=== PATIENT | female | born 1950 | race Caucasian/White ===

== ENCOUNTER 2024-01-08 06:15 | Inpatient (IN) | payer OTHER ==
[2024-01-08] VITALS (15 sets, daily range): BP systolic 94–125; BP diastolic 39–73; PULSE 71–90; RESP 16–18; TEMP 97.2–98.2; O2SAT 91–99
[~2024-01-08] VITALS: Ht 160 cm; Wt 95.7 kg
[~2024-01-08 06:15] MED LIST: FOLI-119 PO; HYDR-4491 OR; LOSA-535 PO; METH2.5T PO; TRIA37.586 PO
[2024-01-08] MEDS: ROCURONIUM 10MG/ML 10ML VIAL IV ONE (06:25)
[2024-01-08] MEDS: SUCCINYLCHOLINE CHLORIDE 20 MG/ML 10ML VIAL IV ONE (06:25)
[2024-01-08] MEDS: TETRACAINE 1% INJ 2 ML VIAL IJ ONE (06:25)
[2024-01-08] MEDS ORDERED: fentaNYL CITRATE 100 MCG/2 ML VL ONE (06:30)
[2024-01-08] MEDS ORDERED: MIDAZOLAM HCL 2MG/2ML 2ml VIAL (1mg/ml) ONE ×2 (06:30→07:35)
[2024-01-08] MEDS ORDERED: MORPHINE SULF PF 5 MG/10 ML VIAL ONE (06:30)
[2024-01-08] MEDS ORDERED: DexAMETHasone SOD PHOS 10MG/1ML VIAL INJ ONE (06:31)
[2024-01-08] MEDS ORDERED: SODIUM CHLORIDE LOCK 10 ML ONE (06:31)
[2024-01-08] MEDS ORDERED: PROPOFOL 10 MG/ML 20 ML IV ONE (06:31)
[2024-01-08] MEDS ORDERED: ONDANSETRON HCL 4 MG/2 ML VIAL ONE (06:31)
[2024-01-08] MEDS ORDERED: LIDOCAINE 1% INJ PF 5ML AMP ONE (06:31)
[2024-01-08] MEDS: TRANEXAMIC ACID 20 ML ONE (07:05)
[2024-01-08] MEDS: ACETAMINOPHEN IV 100 ML IV ONE (07:13)
[2024-01-08] MEDS: oxyCODONE ER 20 MG TAB PO ONE (07:13)
[2024-01-08] MEDS: GABAPENTIN 400 MG CAP ONE (07:13)
[2024-01-08] MEDS: ceFAZolin 2 GM/D5W100ml 100 ML IV ONE (07:15)
[2024-01-08] MEDS: CEFEPIME 1GM/ 50ML 50 ML IV ONE (07:23)
[2024-01-08] MEDS: VANCOMYCIN HCL 1000 MG VL ONE (08:03)
[2024-01-08] MEDS: EPINEPHrine HCL 1 MG/1 ML AMP ONE (08:03)
[2024-01-08] MEDS: ROPIVACAINE 0.5% (5MG/ML) 20ML AMPULE IJ ONE (08:03)
[2024-01-08] MEDS ORDERED: fentaNYL CITRATE 100 MCG/2 ML VL IV PRN (08:45)
[2024-01-08] MEDS: METOCLOPRAMIDE HCL 5MG/ml INJ 2ml VIAL IV ONE (08:45)
[2024-01-08] MEDS ORDERED: NALOXONE HCL 0.4 MG/ML VIAL IV PRN (08:45)
[2024-01-08] MEDS ORDERED: diphenhdrAMINE HCL 50 MG/1 ML VL IV PRN (08:45)
[2024-01-08] MEDS: KETOROLAC TROMETH 30 MG/ML 1ML VIAL IV ONE (08:45)
[2024-01-08] MEDS ORDERED: MORPHINE SULFATE INJ 2 MG/ml SYRG IV PRN (08:45)
[2024-01-08] MEDS ORDERED: HYDROmorphone HCL 2 MG/ML VL/or syr IV PRN ×2 (08:45)
--- NOTE | 2024-01-08 09:56 | DVHOP2 ---
Operative Report - 2 Report Details Date: 01/08/24 Preop Diagnosis: Left knee degenerative arthritis Postop Diagnosis: Same Surgeon: Bee Roy MD Regional Sales Consultant: Acosta LÓPEZ Anesthesiologist: Romel Anesthesia: Local, Regional Drains: Humaira closed wound suction Implant: DonJoy size seven femur PS, size six tibial base plate, size 14 constrained polyethylene, 29 patella Consent: The patient was informed of the risks and benefits of the procedure. These include but are not limited to complications of anesthesia, postoperative infection, incomplete relief of symptoms, recurrence of symptoms, damage to blood vessels, nerves and tendons, deep venous thrombosis, pulmonary embolism and possible need for repeat surgery in the future. Complications: None Estimated Blood Loss: 200 cc Fluids: See anesthesia record Findings: Varus deformity, osteophytes, denuded cartilage with eburnated bone, three compartment disease Indications for Surgery: Left knee degenerative arthritis with severe pain and functional impairment despite nonoperative management Name of Procedure Performed Left total knee arthroplasty Procedure Details Procedure Details: The patient was brought to the operating room and placed on the table in the sup ine position after being given spinal anesthetic with adequate analgesia obtained. Surgical timeout was performed verifying patient, laterality and procedure Preop patient received IV IV Ancef, cefepime and IV tranexamic acid. Tourniquet was applied to the lower extremity. Extremity was elevated, exsanguinated Esmarch, and tourniquet inflated. Lower extremity was prepped and draped in sterile fashion. Midline incision was made followed by medial arthrotomy. I exposed the anterior medial and lateral tibial plateau and the anterior distal femur. Bovie and aqua mantis were used for hemostasis. I excised the anterior meniscal tissue with Bovie. [ I excised the anterior cruciate ligament with Bovie.] I excised a portion of the fat pad with Bovie. The patella was everted and the knee flexed. I drilled the distal femur and suctioned the hole to reduce the risk of fat emboli. I inserted intramedullary guide with 5 degree valgus setting. I pinned the distal femoral cutting block anteriorly. Intramedullary sandra was removed. Distal femoral cut was made and the block removed. I brought my attention to the tibia setting up the external cutting jig for the tibia paying attention to slope, rotation and varus valgus alignment. I set the depth and pinned the block. I used the external alignment sandra to aid in checking alignment. Bone cut was made and bone removed releasing soft tissue attachments with Bovie. Cutting block removed. I then checked the extension gap and deemed adequate and removed the femur and tibia pins. I flexed the knee and applied the femoral sizing guide to the femur. I checked the size and external rotation setting at 90 degrees to Whitesides line and checking the epicondylar axis. I drilled the holes then removed the sizing guide and pin. I then tapped on the 4 in 1 cutting block and checked with the krista wing anteriorly to make sure that I would not notch then pinned the block. Cuts were made and the block and pins were removed. Bone was removed with curved osteotome. I used a rongeur to remove any remaining osteophytes at the femur and tibia. I then used a lamina industrial automation specialist to open up the back alternating between the medial and lateral side. Any remaining meniscal tissue was excised with scalpel. I used curved osteotome, curette and rongeur to remove any posterior osteophytes. [I injected a total of 20 cc of 0.5% ropivacaine into the posterior capsule to facilitate the planned adductor block.] I prophylactically coagulated with aqua mantis. Then applied the femoral box template. This was pinned. I made my box cut and removed the bone. Template and pins removed. I then tapped on the femoral trial. I then brought my attention back to the tibia sizing it. I used the external alignment sandra to make sure that rotation and alignment were good. I made a Bovie bashir at the tibial tray bashir identifying rotation for later use. I pinned the tray and used the reamer and keel punch. I tried various tibial polytrials until I was satisfied. [I then brought my attention to the patella. I sequentially dissected soft tissue with Bovie. I checked the thickness with caliper. I set the appropriate depth of cut on the cutting guide. I attached the cutting guide made my cut. I then sized the patella and made my drill holes. I then placed the patella trial with appropriate depth based on overall precut thickness. ] The patella tracked nicely without thumb pressure. I removed the trials. The implants were brought into the field while bone preparation was started. I used both normal saline irrigation and the CarboJet to prepare the bone. Once cement was ready I applied cement to the tibial implant and tibial bone tapped it on and removed excess cement in usual fashion. In similar fashion I tapped on the femoral implant. I inserted the trial polyethylene and brought the knee into 30 degrees flexion. [I then applied the patella implant in similar fashion holding pressure with the pressurization device.] I irrigated with xperience irrigant. Once cement cured, I checked stability and range of motion as well as patella tracking. tourniquet was released and hemostasis maintained with aqua mantis. I inserted the polyethylene and again checked stability. I used a 2 grams of vancomycin half of which was placed deep and half superficial. I repaired the extensor mechanism with the knee in flexion with #1 Ethibond interrupted [id number]. Deep subcutaneous tissue was closed with 0 Vicryl. Superficial subcutaneous tissue was closed with 2-0 vicryl interrupted. Skin was closed with aditi. I then applied the [humaira closed wound suction]. Patient tolerated the procedure well and was brought to recovery room in stable condition. Condition Stable Disposition Still a Patient BEE ROY MD Jan 08, 2024 09:56
[2024-01-08] MEDS ORDERED: oxyCODONE HCL 5MG TAB PO PRN ×2 (10:00)
--- NOTE | 2024-01-08 10:32 | DVH ---
Left knee radiograph CLINICAL INDICATION: Postop TECHNIQUE: 3 radiographic views of the left knee were obtained. Comparison: None FINDINGS: Post left knee arthroplasty. There is no evidence of acute fracture or dislocation. The visualized joint space is well maintained. The alignment is anatomical. Small volume gas and fluid in the joint space IMPRESSION: Expected findings post left knee arthroplasty.
[2024-01-08] MEDS: D5W/LACTATED RINGERS 1,000 ML IV SCH (11:39)
[2024-01-08] MEDS: PREGABALIN 25 MG CAP PO SCH (12:14)
[2024-01-08] MEDS: SULFAMETHOX W/TRIMETH(800/160MG) DS TAB PO SCH (12:14)
[2024-01-08] MEDS: ceFAZolin 2 GM/D5W50ml 50 ML IV SCH (15:13)
[2024-01-08] MEDS: ACETAMINOPHEN 325 MG TAB PO SCH (15:15)
[2024-01-08] MEDS: LOSARTAN POTASSIUM 50 MG TAB PO SCH (18:00)
[2024-01-09] VITALS (20 sets, daily range): BP systolic 71–136; BP diastolic 46–89; PULSE 53–96; RESP 16–20; TEMP 97–98.6; O2SAT 94–100
[2024-01-09 05:56] LABS: Anion Gap 8 (5-15); Carbon Dioxide 26 mmol/L (20-31); Chloride 104 mmol/L (98-107); Potassium 4.1 mmol/L (3.5-5.1); Sodium 138 mmol/L (136-145)
[2024-01-09 05:58] LABS: Calcium 9.9 mg/dL (8.7-10.4)
[2024-01-09 06:02] LABS: BUN/Creatinine Ratio 14.5 (10.0-20.0); Blood Urea Nitrogen 12 mg/dL (9-23); Glucose 117 mg/dL (74-106)
[2024-01-09 06:09] LABS: Basophils # (auto) 0 10 ^3/uL (0-0.2); Basophils % (auto) 0.2 % (0.0-2.0); Eosinophils # (auto) 0 10 ^3/uL (0-0.8); Hematocrit 31.1 % (36.0-46.0); Hemoglobin 10.7 g/dL (12.2-16.2); Lymphocytes # (auto) 0.8 10 ^3/uL (0.4-5.4); Mean Corpuscular Hemoglobin 31.2 pg (28.0-32.0); Mean Corpuscular Hgb Conc. 34.4 g/dL (32.0-36.0); Mean Corpuscular Volume 90.7 fL (80.0-100.0); Monocytes # (auto) 1.4 10 ^3/uL (0-1.3); Monocytes % (auto) 15.8 % (0.0-12.0); Neutrophils # (auto) 6.7 10 ^3/uL (1.6-8.6); Platelet Count (auto) 211 10^3/uL (140-450); Red Blood Cells 3.43 10^6/uL (4.0-5.20); Red Cell Distribution Width 14.7 % (11.8-14.3)
[2024-01-09] MEDS: TRIAMTERENE/HCTZ 37.5/25 MG CAP/TAB PO SCH (10:00)
[2024-01-09] MEDS: ASPirin 81 mg TAB PO SCH (10:44)
--- NOTE | 2024-01-09 15:04 | DVHINCON2 ---
Date Seen: Jan 09, 2024 Referring Physician Orthopedic surgeon. Reason for Consultation Medical management. History of Present Illness 73-year-old female with a known history of hypertension, rheumatological disorder presented to the hospital for elective procedure for left knee degenerative joint disease status post left total knee arthroplasty postop day one. Patient is currently complaining of minimal pain she walked with the physical therapy earlier. Denies any fevers chills denies any known cardiac history. Past Surgical History Right total knee arthroplasty Left total knee arthroplasty Family History: Patient reports no known family medical history. Allergies: Coded Allergies: Penicillins (Unverified Allergy, Mild, hives, 01/04/24) Home Meds Reported Medications Methotrexate (Methotrexate) 2.5 Mg Tab, 2.5 MG PO QWEEKLY, TAB 01/04/24 Folic Acid (Folic Acid) 1 Mg Tab, 1 MG PO DAILY, TAB 01/04/24 Hydroxychloroquine Sulfate (PLAQUENIL) 200 Mg Tab, 200 MG OR, TAB 01/04/24 Losartan Potassium (Losartan Potassium) 100 Mg Tab, 100 MG PO QPM, TAB 01/04/24 Hydrochlorothiazide W/Triamter (Triamterene/Hydrochloroth) 1 Cap Cap, 1 CAP PO DAILY, CAP 01/04/24 Current Medications Current Medications Medications (Trade) Dose Ordered Sig/Kristine Route PRN Reason Start Time Stop Time Status Last Admin Aspirin 81 mg BID PO 01/09/24 10:00 01/09/24 10:44 Triamterene/HCTZ (Dyazide 37.5/ 25MG Capsule) 1 cap DAILY PO 01/09/24 10:00 Losartan Potassium (Cozaar Tablet) 100 mg QPM PO 01/08/24 18:00 Review of Systems 12 review of system were negative except mentioned above. Vital Signs Vital Signs Date Time Temp Pulse Resp B/P (MAP) Pulse Ox O2 Delivery O2 Flow Rate FiO2 01/09/24 12:41 98.2 76 17 113/46 (68) 99 98.2 01/09/24 08:00 Nasal Cannula* 2 28 Physical Exam HEENT pupils are reactive Neck is supple CV is S1-S2 regular rate and rhythm Respiratory diminished breath sound bases GI positive bowel sound Extremity no edema SQUEEGEE FINISHER no motor deficit Labs/Diagnostic Data Labs Test 01/09/24 05:14 01/08/24 14:50 Range/Units White Blood Count 9.0 4.4-10.8 10^3/uL Red Blood Count 3.43 L 4.0-5.20 10^6/uL Hemoglobin 10.7 L 12.2-16.2 g/dL Hematocrit 31.1 L 36.0-46.0 % Mean Corpuscular Volume 90.7 80.0-100.0 fL Mean Corpuscular Hemoglobin 31.2 28.0-32.0 pg Mean Corpuscular Hemoglobin Concent 34.4 32.0-36.0 g/dL Red Cell Distribution Width 14.7 H 11.8-14.3 % Platelet Count 211 140-450 10^3/uL Mean Platelet Volume 7.9 6.9-10.8 fL Neutrophils (%) (Auto) 75.0 37.0-80.0 % Lymphocytes (%) (Auto) 9.0 L 10.0-50.0 % Monocytes (%) (Auto) 15.8 H 0.0-12.0 % Eosinophils (%) (Auto) 0.0 0.0-7.0 % Basophils (%) (Auto) 0.2 0.0-2.0 % Neutrophils # (Auto) 6.7 1.6-8.6 10 ^3/uL Lymphocytes # (Auto) 0.8 0.4-5.4 10 ^3/uL Monocytes # (Auto) 1.4 H 0-1.3 10 ^3/uL Eosinophils # (Auto) 0 0-0.8 10 ^3/uL Basophils # (Auto) 0 0-0.2 10 ^3/uL Nucleated Red Blood Cells 0.0 % Sodium Level 138 136-145 mmol/L Potassium Level 4.1 3.5-5.1 mmol/L Chloride Level 104 98-107 mmol/L Carbon Dioxide Level 26 20-31 mmol/L Anion Gap 8 5-15 Blood Urea Nitrogen 12 9-23 mg/dL Creatinine 0.83 0.550-1.02 mg/dL Glomerular Filtration Rate Calc 73 >90 mL/min BUN/Creatinine Ratio 14.5 10.0-20.0 Serum Glucose 117 H 74-106 mg/dL Calcium Level 9.9 8.7-10.4 mg/dL Assessment 73-year-old female with known history of hypertension, previous history of right total knee arthroplasty, rheumatological disorder who presented to the hospital for elective surgery for the left knee. 1. Hypotension controlled 2. Rheumatological disorder 3. Degenerative joint disease left knee status post left total knee arthroplasty -physical therapy evaluation and treatment-, pain meds as needed -discharge plan per Orthopedics. Plan discussed with: Patient Date of Service: Jan 09, 2024 Billing Provider: MARCUS GATICA MD Common Visit Codes: NOT BILLABLE MARCUS GATICA MD Jan 09, 2024 15:04
--- NOTE | 2024-01-09 15:24 | DVHPN2 ---
Progress Note - Dictate Date Seen: Jan 09, 2024 Medical Necessity Reason Pt with a Central, PICC or Fol: No Subjective Patient was lying comfortably in bed during my evaluation and reports some postoperative knee pain that is being well managed with the help of pain medication. Patient notes that she was able to get up and walk with the help of physical therapy and her walker but was only able to take a few steps towards the wall facing her bed and back to her bed due to the pain in her feeling very tired. Patient is otherwise feeling well denying any other complaints or concerns during my evaluation. vital signs Vital Sign Date Time Temp Pulse Resp B/P (MAP) Pulse Ox O2 Delivery O2 Flow Rate FiO2 01/09/24 12:41 98.2 76 17 113/46 (68) 99 98.2 01/09/24 08:00 Nasal Cannula* 2 28 Total Intake and Output 01/08/24 01/08/24 01/09/24 15:00 23:00 07:00 Intake Total 170 ml 750 ml 100 ml Output Total 600 ml Balance 170 ml 750 ml -500 ml medications Current Medications Medications Dose Ordered Sig/Kristine Route Start Time Stop Time Status Last Admin Dose Admin Diphenhydramine HCl 25 mg Q4HP PRN IV 01/08/24 08:45 Dextrose/Lactated Ringer's 1,000 ml @ 100 mls/hr Q10H IV 01/08/24 10:00 01/09/24 06:00 100 MLS/HR Acetaminophen 650 mg Q4HP PRN PO 01/08/24 10:00 Acetaminophen 650 mg Q6HR PO 01/08/24 12:00 01/09/24 12:00 650 MG Pregabalin 50 mg BID PO 01/08/24 10:00 01/09/24 10:44 50 MG Oxycodone HCl 5 mg Q4HP PRN PO 01/08/24 10:00 Oxycodone HCl 10 mg Q4HP PRN PO 01/08/24 10:00 Aspirin 81 mg BID PO 01/09/24 10:00 01/09/24 10:44 81 MG Trimethoprim/ Sulfamethoxazole 1 tab Q12HR PO 01/08/24 10:00 01/09/24 10:44 1 TAB Triamterene/HCTZ 1 cap DAILY PO 01/09/24 10:00 Losartan Potassium 100 mg QPM PO 01/08/24 18:00 objective A&O x4 in no acute distress Knee range of motion grossly limited with pain on movement Giuliano dressing clean, dry, intact, and maintaining suction No distal edema or calf tenderness to palpation Neurovascularly intact with cap refill less than 2 seconds laboratory and microbiology Laboratory Tests 01/09/24 05:14 Test 01/09/24 05:14 Range/Units Serum Glucose 117 H 74-106 mg/dL Assessment/Plan Continue current management as well as pain control and physical therapy. Advised patient to remain weight-bearing as tolerated with the assistance of a walker. We will reconvene with the patient tomorrow morning for re-evaluation and possible discharge home as patient did not want to go to a assisted facility as she said she has help at home. Plan discussed with: Patient SUREKHA FELDMAN Jan 09, 2024 15:24
[2024-01-09] MEDS: ACETAMINOPHEN 325 MG TAB PO PRN (22:19)
[2024-01-10 01:00] VITALS: BP 119/68; PULSE 90; RESP 18; TEMP 98.1; O2SAT 94
[2024-01-10 05:00] VITALS: BP 138/68; PULSE 93; RESP 18; TEMP 97.8; O2SAT 94
[2024-01-10 08:00] VITALS: PULSE 80; RESP 18; O2SAT 95
[2024-01-10 08:30] VITALS: BP 117/71; PULSE 100; RESP 19; TEMP 97.5; O2SAT 94
[2024-01-10 09:42] LABS: Hepatitis B Surface Antigen Negative (Negative); Hepatitis C Antibody Negative (Negative)
--- NOTE | 2024-01-10 11:39 | DVHDS2 ---
Discharge Summary Date of Admission Jan 08, 2024 at 09:46 Date of Discharge: Jan 10, 2024 Labs/Diagnostic Data: Laboratory Results Test 01/09/24 05:14 01/08/24 14:50 White Blood Count 9.0 10^3/uL (4.4-10.8) Red Blood Count 3.43 10^6/uL (4.0-5.20) Hemoglobin 10.7 g/dL (12.2-16.2) Hematocrit 31.1 % (36.0-46.0) Mean Corpuscular Volume 90.7 fL (80.0-100.0) Mean Corpuscular Hemoglobin 31.2 pg (28.0-32.0) Mean Corpuscular Hemoglobin Concent 34.4 g/dL (32.0-36.0) Red Cell Distribution Width 14.7 % (11.8-14.3) Platelet Count 211 10^3/uL (140-450) Mean Platelet Volume 7.9 fL (6.9-10.8) Neutrophils (%) (Auto) 75.0 % (37.0-80.0) Lymphocytes (%) (Auto) 9.0 % (10.0-50.0) Monocytes (%) (Auto) 15.8 % (0.0-12.0) Eosinophils (%) (Auto) 0.0 % (0.0-7.0) Basophils (%) (Auto) 0.2 % (0.0-2.0) Neutrophils # (Auto) 6.7 10 ^3/uL (1.6-8.6) Lymphocytes # (Auto) 0.8 10 ^3/uL (0.4-5.4) Monocytes # (Auto) 1.4 10 ^3/uL (0-1.3) Eosinophils # (Auto) 0 10 ^3/uL (0-0.8) Basophils # (Auto) 0 10 ^3/uL (0-0.2) Nucleated Red Blood Cells 0.0 % Sodium Level 138 mmol/L (136-145) Potassium Level 4.1 mmol/L (3.5-5.1) Chloride Level 104 mmol/L (98-107) Carbon Dioxide Level 26 mmol/L (20-31) Anion Gap 8 (5-15) Blood Urea Nitrogen 12 mg/dL (9-23) Creatinine 0.83 mg/dL (0.550-1.02) Glomerular Filtration Rate Calc 73 mL/min (>90) BUN/Creatinine Ratio 14.5 (10.0-20.0) Serum Glucose 117 mg/dL (74-106) Calcium Level 9.9 mg/dL (8.7-10.4) Hepatitis B Surface Antigen Negative (Negative) Hepatitis C Antibody Negative (Negative) Other Laboratory Tests 01/09/24 05:14 Brief Hx & Hospital Course: Patient was brought to the hospital on Sunday to undergo a left total knee arthroplasty. She tolerated the procedure well without complications and was kept overnight for postoperative observation. She denied any overnight events but was experiencing a lot of postoperative pain as well as feeling very tired and was unable to get up and walk very far with physical therapy the 1st day postop. Today patient reports feelings much better and was able to get up and walk with physical therapy with the assistance of a walker down the eduardo around the nurses station and back to her bed. Patient is otherwise feeling well denying any other complaint or concern during my evaluation and would like to go home. Condition at Discharge: Stable Final Diagnosis/Problems List Same Discharge Disposition: Home Discharge Instruct/Medications Diet: Regular Activity: See Comment Activity comment: Patient to remain WBAT with the assistance of a walker Follow Up/Referral: Patient instructed to follow up with our office in 10-14 days for her 1st postoperative evaluation Medications: Rx sent via our outpatient EMR system Discharge Statement: "Patient was advised to return to the ER or call 911 if any headaches, dizziness, shortness of breath, chest pain, abdominal pain, bleeding, fevers, or worsening of medical condition. Patient was counseled about treatment plan, medications, possible side effects, patientverbalized understanding. All questions were answered to the best of my ability. This discharge took greater then 30 minutes in planning, reviewing documentation, counseling the patient, and discussing with other team members." ASSESSMENT ASSESSMENT Assessment Same SUREKHA FELDMAN Jan 10, 2024 11:39
--- NOTE | 2024-01-10 11:40 | DVHPN2 ---
Progress Note - Dictate Date Seen: Jan 10, 2024 Medical Necessity Reason Pt with a Central, PICC or Fol: No Subjective Patient was lying comfortably in bed during my evaluation and reports some postoperative knee pain that is being well managed with the help of pain medication. Patient notes that she was able to get up and walk with the help of physical therapy and her walker and was able to get down the eduardo around the nurses station and back to her bed with some postoperative knee pain. Patient is otherwise feeling well denying any other complaints or concerns during my evaluation. vital signs Vital Sign Date Time Temp Pulse Resp B/P (MAP) Pulse Ox O2 Delivery O2 Flow Rate FiO2 01/10/24 08:30 97.5 100 19 117/71 (86) 94 97.5 01/09/24 20:00 Room Air* 0 21 Total Intake and Output 01/09/24 01/09/24 01/10/24 15:00 23:00 07:00 Intake Total 300 ml 380 ml Balance 300 ml 380 ml medications Current Medications Medications Dose Ordered Sig/Kristine Route Start Time Stop Time Status Last Admin Dose Admin Diphenhydramine HCl 25 mg Q4HP PRN IV 01/08/24 08:45 Dextrose/Lactated Ringer's 1,000 ml @ 100 mls/hr Q10H IV 01/08/24 10:00 01/10/24 01:56 100 MLS/HR Acetaminophen 650 mg Q4HP PRN PO 01/08/24 10:00 01/10/24 09:36 650 MG Acetaminophen 650 mg Q6HR PO 01/08/24 12:00 01/09/24 12:00 650 MG Pregabalin 50 mg BID PO 01/08/24 10:00 01/10/24 09:38 50 MG Oxycodone HCl 5 mg Q4HP PRN PO 01/08/24 10:00 Oxycodone HCl 10 mg Q4HP PRN PO 01/08/24 10:00 Aspirin 81 mg BID PO 01/09/24 10:00 01/10/24 09:39 81 MG Trimethoprim/ Sulfamethoxazole 1 tab Q12HR PO 01/08/24 10:00 01/10/24 09:37 1 TAB Triamterene/HCTZ 1 cap DAILY PO 01/09/24 10:00 Losartan Potassium 100 mg QPM PO 01/08/24 18:00 objective A&O x4 in no acute distress Knee range of motion grossly limited with pain on movement Giuliano dressing clean, dry, intact, and maintaining suction No distal edema or calf tenderness to palpation Neurovascularly intact with cap refill less than 2 seconds laboratory and microbiology Laboratory Tests 01/09/24 05:14 Test 01/09/24 05:14 Range/Units Serum Glucose 117 H 74-106 mg/dL Assessment/Plan Patient to be discharged home and advised to remain weight-bearing as tolerated with the assistance of a walker. I instructed the patient to follow up with our office in 10-14 days for her 1st postoperative evaluation and to maintain her dressings clean, dry, intact, and maintaining suction and to call our office if she has any questions or concerns. Rx sent via our outpatient EMR system. She understood and agreed. Plan discussed with: Patient SUREKHA FELDMAN Jan 10, 2024 11:40
[2024-01-10 13:30] VITALS: BP 131/83; PULSE 90; RESP 20; TEMP 98.1; O2SAT 97
== END 2024-01-10 13:46 | disposition home or self-care (01) | DRG 470 ==
LOC: SUR 06:15 → OVERFLOW 09:46 → WEST WING 11:29
PROVIDERS: ADMIT Orthopaedic Surgery; ATTEND Internal Medicine
PROC: 0SRD069 Replacement of Left Knee Joint with Oxidized Zirconium on Polyethylene Synthetic Substitute, Cemented, Open Approach (ICD-10-PCS; principal; 2024-01-08 07:15)
DX: M17.12 Unilateral primary osteoarthritis, left knee (principal); I10 Essential (primary) hypertension; I95.9 Hypotension, unspecified; Z79.899 Other long term (current) drug therapy
CPT/HCPCS: 36415; 73562; 80048; 85025; 86803; 86850; 86900; 86901; 87340; 97110; 97116; 97163; 97530; G0378; J0131; J0171; J0330; J1100; J2250; J2405; J2704